=== PATIENT | female | born 1965 | race Caucasian/White ===

== ENCOUNTER → 2020-05-24 10:49 | Outpatient (BNVA) | payer OTHER, SELFPAY | PROVIDERS: PCP Hospitalist; Visit Provider Hospitalist | DX: J45.40 Moderate persistent asthma, uncomplicated (principal); J30.9 Allergic rhinitis, unspecified; K44.9 Diaphragmatic hernia without obstruction or gangrene | CPT/HCPCS: 90471; 90732; 99212 ==

== ENCOUNTER → 2020-11-22 09:07 | Outpatient (BNVA) | payer OTHER, SELFPAY | PROVIDERS: PCP Hospitalist; Visit Provider Hospitalist ==

== ENCOUNTER 2021-06-04 08:45 | Outpatient (REF) | payer OTHER, SELFPAY ==
--- NOTE | 2021-06-04 17:35 | PFT_ITS ---
INDICATION: Dyspnea. SPIROMETRY: FEV1 to FVC 78% with an FEV1 of 2.66 L, which is 97% predicted and FVC of 3.41 L, which is 96% predicted. No significant response to bronchodilators noted. Maximum voluntary ventilation 100% predicted. LUNG VOLUMES: Total lung capacity 102% predicted. DIFFUSION CAPACITY: DLCO 85% predicted. COMPARISONS: None. INTERPRETATION: No obstructive nor restrictive ventilatory defects identified. No significant response to bronchodilators noted. Normal lung volumes and normal diffusion capacity. Otherwise, pretty normal pulmonary function studies. Clinical correlation warranted. Aditya Key MD MR/MODL / [id number]
== END 2021-06-04 08:46 | disposition home or self-care (01) ==
LOC: HO.RESP 08:45
PROVIDERS: PCP Hospitalist; Visit Provider Hospitalist
DX: J45.40 Moderate persistent asthma, uncomplicated (principal)
CPT/HCPCS: 94060; 94727; 94729; 99212

== ENCOUNTER → 2021-08-27 11:01 | Outpatient (BNVA) | payer OTHER, SELFPAY | PROVIDERS: PCP Hospitalist; Visit Provider Hospitalist | DX: J45.41 Moderate persistent asthma with (acute) exacerbation (principal); J30.9 Allergic rhinitis, unspecified; J40 Bronchitis, not specified as acute or chronic; J01.90 Acute sinusitis, unspecified | CPT/HCPCS: 99212 ==

== ENCOUNTER → 2022-06-04 08:13 | Outpatient (BNVA) | payer OTHER, SELFPAY | PROVIDERS: PCP Hospitalist; Visit Provider Hospitalist | DX: J45.41 Moderate persistent asthma with (acute) exacerbation (principal); J30.9 Allergic rhinitis, unspecified; K44.9 Diaphragmatic hernia without obstruction or gangrene | CPT/HCPCS: 99212 ==

== ENCOUNTER 2023-09-29 08:14 | Outpatient (AMB) | payer OTHER, SELFPAY ==
--- NOTE | 2023-09-29 08:26 | MHC.OFFVIS ---
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 Overall she is doing well. Back in February so she did develop worsening respiratory symptoms and did have to go on a prednisone taper. She did not need antibiotics. She does have a nebulizer machine but has old medicine. She is wondering if that is able to be use. She still has a cough at times productive but overall better. Mild in severity. She continues use the Advair HFA. This works well for her. In the meantime she did get another GI doctor. She has a history hiatal hernia. We did do an x-ray that we reviewed back in July [address] [facility]. In a did demonstrate a moderate degree of hiatal hernia. Otherwise no other acute findings. 06/04/2022 the patient is here for a pulmonary follow-up visit. The patient overall is doing well. Back in March she did have a viral syndrome resulting significant asthma. She did require prednisone and also using her nebulizer. She thought she would have to get checked in the hospital but she subsequently improved after several weeks. She is back to her baseline. She is using her Advair as prescribed. The patient continues to lose weight with weight watchers. She continues on the singular. Otherwise patient is doing well. On examination she continues to have some degree of wheezing. She does not will get bothered by it. The patient feels comfortable with current respiratory regimen. We did talk about optimizing at therapy adding muscarinic antagonist in the near future if she gets worse. She can always call and I can send a prescription. Otherwise will follow-up in 1 years time. 09/29/2023 the patient is here visit very well. Back around March she did have an episode of asthma and bronchitis. She was placed on prednisone now on antibiotics. Typically has 1 episode a year. She has been very stable on the Advair. She has not been using her rescue inhaler. She responded very well to the singular. No recent imaging studies to review. The patient will continue with current respiratory regimen. We did review her vaccines. She is going to get her RSV vaccine in the fall. She is not due for her Prevnar 20 vaccine at this time. Otherwise patient is without any other complaints. 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 Chronic bronchitis Hiatal hernia Chronic allergic rhinitis Asthma Social History (Updated 06/04/21 @ 10:19 by BLAS Thompson) Patient Tobacco Use Status: Former Tobacco user Tobacco use type: Cigarette Years Smoked: 4 years Review of Systems Const Denies night sweats and Reports weight loss ENT Denies change in voice, Denies lip swelling, Denies mouth pain, Reports nasal congestion, Reports nasal discharge and Denies tongue swelling Card Denies chest pain Resp Denies change in phlegm color, Denies chest congestion, Reports cough and Reports wheezing GI Denies abdominal pain Musc Denies no additional complaints Skin/Breast Denies rash Neuro Denies Neuro-related abnormal movements Psych Denies no additional complaints Dmitriy/Lymph Denies easy bleeding and Denies lymphadenopathy Aller/Immun Denies lip swelling, Denies tongue swelling and Reports wheezing Physical Exam Vital Signs: Last Vital Signs Pulse 74 09/29/23 08:27 Pulse Ox 98 09/29/23 08:27 Oxygen Delivery Method Room Air 09/29/23 08:27 BMI result Body Mass Index 29.6 Const General: alert Neck Neck: Yes normal visual inspection, Yes full ROM and Yes no lymphadenopathy Chest Chest palpation & inspection: normal inspection of the chest Resp Auscultation: clear to auscultation bilaterally (coarse) and no wheezes Cardio Rate: regular rate Rhythm: regular rhythm Heart sounds: S1 normal heart sound present and S2 normal heart sound present GI Palpation (GI): Soft to palpation and nontender Auscultation: normal bowel sounds Assessment & Plan Assessment & Plan (1) Asthma: Code(s): J45.909 - Unspecified asthma, uncomplicated Category: Medical Qualifiers: Asthma complication type: with acute exacerbation Asthma persistence: persistent Asthma severity: moderate Qualified Code(s): J45.41 - Moderate persistent asthma with (acute) exacerbation (2) Chronic allergic rhinitis: Code(s): J30.9 - Allergic rhinitis, unspecified Category: Medical Plan continue Advair HFA OMERO as needed Nebsulizer as needed Acapella valve for CPT reflux diet Continue singulair CXR F/U 12 months Orders: Orders XR chest 2V Today J45.41 - Moderate persistent asthma with (acute) exacerbation Medications: New prednisone PO daily; Take 6 tabs daily x 3 days, then 5 tabs x 3 days, then 4 tabs x 3 days, then 3 tabs x 3 days, then 2 tabs daily x 3 days, then 1 tab x 3 days to complete. 63 tabs 0RF 18 days Changed From Advair HFA 115-21 mcg/actuation (fluticasone propion-salmeterol) 2 puffs inhalation BID 36 ea 3RF NS To Advair HFA 115-21 mcg/actuation (fluticasone propion-salmeterol) 2 puffs inhalation BID 3 ea 3RF 90 days NS Refilled montelukast 10 mg PO DAILY 90 tabs 3RF Coding Level of Care Code Est Pt Level 4 (41276) Diagnoses Moderate persistent asthma with acute exacerbation J45.41 Asthma complication type: with acute exacerbation Asthma persistence: persistent Asthma severity: moderate Chronic allergic rhinitis J30.9 Time Spent (min) 16
[2023-09-29 08:27] VITALS: PULSE 74; O2SAT 98; BMI 29.6
== END 2023-09-29 08:42 | disposition home or self-care (01) ==
PROVIDERS: PCP Hospitalist; Visit Provider Hospitalist
DX: J45.41 Moderate persistent asthma with (acute) exacerbation (principal); J30.9 Allergic rhinitis, unspecified
CPT/HCPCS: 99214

== ENCOUNTER → 2023-09-29 08:14 | Outpatient (BNVA) | payer OTHER, SELFPAY | PROVIDERS: PCP Hospitalist; Visit Provider Hospitalist | DX: J45.41 Moderate persistent asthma with (acute) exacerbation (principal); J30.9 Allergic rhinitis, unspecified; Z79.899 Other long term (current) drug therapy | CPT/HCPCS: 99212 ==

== ENCOUNTER 2024-09-09 10:01 | Outpatient (AMB) | payer OTHER, SELFPAY ==
--- NOTE | 2024-09-09 10:06 | MHC.OFFVIS ---
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 Overall she is doing well. Back in February so she did develop worsening respiratory symptoms and did have to go on a prednisone taper. She did not need antibiotics. She does have a nebulizer machine but has old medicine. She is wondering if that is able to be use. She still has a cough at times productive but overall better. Mild in severity. She continues use the Advair HFA. This works well for her. In the meantime she did get another GI doctor. She has a history hiatal hernia. We did do an x-ray that we reviewed back in July 2018 at [facility]. In a did demonstrate a moderate degree of hiatal hernia. Otherwise no other acute findings. 06/04/2022 the patient is here for a pulmonary follow-up visit. The patient overall is doing well. Back in March she did have a viral syndrome resulting significant asthma. She did require prednisone and also using her nebulizer. She thought she would have to get checked in the hospital but she subsequently improved after several weeks. She is back to her baseline. She is using her Advair as prescribed. The patient continues to lose weight with weight watchers. She continues on the singular. Otherwise patient is doing well. On examination she continues to have some degree of wheezing. She does not will get bothered by it. The patient feels comfortable with current respiratory regimen. We did talk about optimizing at therapy adding muscarinic antagonist in the near future if she gets worse. She can always call and I can send a prescription. Otherwise will follow-up in 1 years time. 09/29/2023 the patient is here visit very well. Back around March she did have an episode of asthma and bronchitis. She was placed on prednisone now on antibiotics. Typically has 1 episode a year. She has been very stable on the Advair. She has not been using her rescue inhaler. She responded very well to the singular. No recent imaging studies to review. The patient will continue with current respiratory regimen. We did review her vaccines. She is going to get her RSV vaccine in the fall. She is not due for her Prevnar 20 vaccine at this time. Otherwise patient is without any other complaints. 09/09/2024 the patient overall has been doing well. She continues use her respiratory therapy as prescribed. He has been about a year since I last saw her. She did much better denies any viral syndromes like she had prior which is of concern. She is now 59 years old so now she had a candidate for the RSV vaccine. I did encourage her to get a specially since she likely had RSV a couple years ago and had significant symptoms. The patient also should get her Tdap pertussis booster if his time for her to do that. No imaging studies to review. Will plan to get an x-ray next year. If she has any issues prior to next year's appointment she will call for an earlier assessment. [facility] Medical History (Updated 08/27/21 @ 20:25 by Aditya Key MD) [id number] syndrome Chronic bronchitis Hiatal hernia Chronic allergic rhinitis Asthma Social History Patient Tobacco Use Status: Former Tobacco user Tobacco use type: Cigarette Years Smoked: 4 years Review of Systems Const Denies night sweats and Reports weight loss ENT Denies change in voice, Denies lip swelling, Denies mouth pain, Reports nasal congestion, Reports nasal discharge and Denies tongue swelling Card Denies chest pain Resp Denies change in phlegm color, Denies chest congestion, Reports cough and Reports wheezing GI Denies abdominal pain Musc Denies no additional complaints Skin/Breast Denies rash Neuro Denies Neuro-related abnormal movements Psych Denies no additional complaints Dmitriy/Lymph Denies easy bleeding and Denies lymphadenopathy Aller/Immun Denies lip swelling, Denies tongue swelling and Reports wheezing Physical Exam Vital Signs: Last Vital Signs Pulse 79 09/09/24 10:07 BP 108/66 09/09/24 10:07 Pulse Ox 97 09/09/24 10:07 Oxygen Delivery Method Room Air 09/09/24 10:07 BMI result Body Mass Index 30.3 Const General: alert Neck Neck: Yes normal visual inspection, Yes full ROM and Yes no lymphadenopathy Chest Chest palpation & inspection: normal inspection of the chest Resp Auscultation: clear to auscultation bilaterally (coarse) and no wheezes Cardio Rate: regular rate Rhythm: regular rhythm Heart sounds: S1 normal heart sound present and S2 normal heart sound present GI Palpation (GI): Soft to palpation and nontender Auscultation: normal bowel sounds Assessment & Plan Assessment & Plan (1) Asthma: Code(s): J45.909 - Unspecified asthma, uncomplicated Category: Medical Qualifiers: Asthma complication type: with acute exacerbation Asthma persistence: persistent Asthma severity: moderate Qualified Code(s): J45.41 - Moderate persistent asthma with (acute) exacerbation (2) Chronic allergic rhinitis: Code(s): J30.9 - Allergic rhinitis, unspecified Category: Medical Plan continue Advair HFA OMERO as needed Nebsulizer as needed Acapella valve for CPT reflux diet Continue singulair CXR F/U 12 months Medications: New prednisone PO daily; Take 2 tabs daily x 5 days, then 1 tablet daily x 5 days 15 tabs 0RF 10 days Refilled Advair HFA 115-21 mcg/actuation (fluticasone propion-salmeterol) 2 puffs inhalation BID 3 ea 3RF 90 days NS montelukast 10 mg PO DAILY 90 tabs 3RF Ventolin HFA 90 mcg/actuation (albuterol sulfate) 2 puffs inhalation Q4H PRN 18 ea 11RF for wheezing NS albuterol sulfate 2.5 mg (3 mL) inhalation Q4H PRN 90 mL 11RF shortness of breath or wheezing 30 days Coding Level of Care Code Est Pt Level 4 (13646) Diagnoses Moderate persistent asthma with acute exacerbation J45.41 Asthma complication type: with acute exacerbation Asthma persistence: persistent Asthma severity: moderate Chronic allergic rhinitis J30.9 Time Spent (min) 16
[2024-09-09 10:07] VITALS: BP 108/66; PULSE 79; O2SAT 97; BMI 30.3
--- OUTSIDE RECORDS SUMMARY | 2024-09-09 10:35 | XMS_ITS | Patient Health Record ---
Author Organization [facility] Address [address] [place] [address] Care Team Providers Care Pump Erector Name Role Phone SASHA BUCHANAN Primary Care Provider Allergies Allergen (clinical drug ingredient) Drug/Non Drug Allergy documented on EMR Reaction Allergy Type Onset Date Status Pollen pollen (uncoded) Unknown Allergy Act harmony Results Component Value Reference Range Notes QuantiFERON-TB Gold Plus-[id number] Reviewed date:06/17/2024 07:48:26 AM Interpretation: Performing Lab:[facility] [place], [address], [place], Phone - [phone], Director - Nehemiah Notes/Report: QuantiFERON Incubation Incubation performed. QuantiFERON-TB Gold Plus Negative Negative No response to M tuberculosis antigens detected. Infection with M tuberculosis is unlikely, but high risk individuals should be considered for additional testing (ATS/IDSA/CDC Clinical Practice Guidelines, 2017). The reference range is an Antigen minus Nil result of <0.35 IU/mL. Chemiluminescence immunoassay methodology QuantiFERON Criteria QuantiFERON-TB Gold Plus is a qualitative indirect test for M tuberculosis infection (including disease) and is intended for use in conjunction with risk assessment, radiography, and other medical and diagnostic evaluations. The QuantiFERON-TB Gold Plus result is determined by subtracting the Nil value from either TB antigen (Ag) value. The Mitogen tube serves as a control for the test. QuantiFERON TB1 Ag Value 0.35 QuantiFERON TB2 Ag Value 0.30 QuantiFERON Nil Value 0.30 QuantiFERON Mitogen Value 7.92 Reason For Referral No Information Medications Medication SIG (Take, Route, Frequency, Duration) Notes Start Date End Date Status Singulair 10 MG 1 tablet Orally Once a day Active SEROquel 200 MG 1 tablet at bedtime Orally Once a day for 30 day(s) Active Advair HFA 115-21 MCG/ACT 2 puffs Inhalation Once a day Active Turmeric one daily Active Fish Oil one daily Active Albuterol Sulfate HFA 108 (90 Base) MCG/ACT 2 puffs as needed Inhalation every 6 hrs Active Shingrix 50 MCG/0.5ML as directed Intramuscular 1 for 365 days Not-Taking Flax Seeds - as directed Orally one pill daily Active Azithromycin 250 MG 2 tablet on the day, then 1 tablet daily for 4 days Orally Once a day for 5 day(s) 11/22/2020 Not-Taking Doxycycline Hyclate 100 MG 1 capsule Orally twice a day for 1 day 10/02/2020 Not-Taking Calcium one daily Active Vitamin D one daily Active Vitamin E one daily Active Vitamin B Complex - as directed Orally one daily Active Omeprazole 20 MG 1 capsule 30 minutes before morning meal Orally Once a day Active Cranberry one daily Active Levothyroxine Sodium 150 MCG 1 tablet in the morning on an empty stomach Orally Once a day Active Magnesium one daily Active Immunizations Vaccine Route Administration Date Status Comme nts COVID Unknown 12/14/2020 Administered Pfizer Influenza, high dose seasonal Unknown 03/02/2019 Admini stered Social History Tobacco Use: Social History Observation Description Date Details (start date - stop date) Never Smoker NA - NA Tobacco Use/Smoking Question Answer Notes Are you a nonsmoker Alcohol Screen (Audit-C) Question Answer Notes Did you have a drink contain ing alcohol in the past year? Yes How often did you have a dri nk containing alcohol in the past year? Monthly or less (1 point) How many drinks did you have on a typical day when you were drinking in the past year? 1 or 2 drinks (0 point) Points 1 Interpretation Negative Problems Problem Type SNOMED Code ICD Code Onset Dates Problem Status W/U Status Risk Notes Problem Hypothyroidism (13373453) Hypothyroidism, unspecified (E03.9) Active confirmed Problem Obesity due to excess calories (224931812) Other obesity due to excess calories (E66.09) Active confirmed Problem Insomnia (524156015) Insomnia, unspecified (G47.00) Active confirmed Problem Uncomplicated moderate persistent asthma (580156389) Moderate persistent asthma, uncomplicated (J45.40) Active confirmed Problem Gastro-esophageal reflux disease without esophagitis (123189362) Gastro-esophagea l reflux disease without esophagitis (K21.9) Active confirmed Problem History of disease caused by Severe acute respiratory syndrome coronavirus 2 (situation) (14045989311936686 5) Personal history of COVID-19 (Z86.16) Active confirmed Vital Signs Heart Rate 62 /min 02/15/2024 Temperature 97 degrees Fahrenheit 02/15/2024 Oximetry 97 % 02/15/2024 Blood pressure diastolic 70 mm Hg 02/15/2024 Height 5'5'' in 02/15/2024 Blood pressure systolic 110 mm Hg 02/15/2024 Weight 185.1 lbs 02/15/2024 BMI 30.8 kg/m2 02/15/2024 Encounters Encounter Location Date Provider Diagnosis [address] [place] [address] 02/15/2024 SASHA BUCHANAN Hypothyroidism, unspecified E03.9 ; Annual physical exam Z00.00 ; Gastro-esophageal reflux disease without esophagitis K21.9 ; Moderate persistent asthma, uncomplicated J45.40 and Insomnia, unspecified G47.[address] [place] [address] 06/09/2024 SASHA BUCHANAN Encounter for screen ing for respiratory tuberculosis Z11.[address] [address] 07/28/2024 SASHA BUCHANAN Assessments Encounter Date Diagnosis (ICD Code) Assessment Notes Treatment Notes Treatment Clinical Notes Section Notes 02/15/2024 Hypothyroidism, unspecified (ICD-10 - E03.9) Ms. Gilbert is a 59 year old lady with hypothyroidism s/p thyroidectomy for thyroid cancer, asthma and insomnia here for annual physical. Plan is as follows: Hypothyroidism. status post thyroidectomy. she sees Dr. Manjarrez. Continue Levothyroxine 150 MCG and advised to take it first thing in the morning on an empty stomach. GERD. she sees Dr. Deluca. Continue Omeprazole 20 MG 30 minutes before morning meal once a day Asthma. she sees Dr. Key. She uses Advair and Albuterol inhalers as needed. Continue Singulair 10 MG once a day Insomnia. She follows up with Dr. Troncoso. She sleeps reasonably well on Seroquel 200 MG once daily. Hyperlipidemia. Total cholesterol 215. LDL 125. Non HDL 139. which were high. Suggested dietary modifications. EKG is NSR at [address] and T wave changes and no BBB and normal intervals Class 1 Obesity. Advised dietary restrictions and regimental exercise. Goal is to lose 5-6 lbs a month. Goal weight 158 lbs Eye screening. She sees her web communications specialist regularly. Dental screening. She sees dentist regularly. Skin screening. She sees her infantry assaultman regularly. Colon cancer screening. She had her colonoscopy in 2023 at [place] and she is on [id number]. Breast cancer screening. She had her mammogram in June. She sees her customer experience strategist regularly. Immunizations. She needs to update his COVID-19, shingles and pneumonia vaccines. Advance directive. She is on full code and her HCP is her son Clement iGlbert [phone] Blood work reviewed with patient and questions answered. Screening blood work before next appointment. General health concerns discussed with patient. Scribe services used to formulate this note under HIPAA compliance and under [place] law mandated for scribe services. Patient aware of service. Verbal consent and written consent taken from the patient. Patient understands and verbalizes understanding of the scribes services and all questions answered regarding scribes services. Patient agrees to use of scribes services. 02/15/2024 Annual physical exam (ICD-10 - Z00.00) Ms. Gilbert is a 59 year old lady with hypothyroidism s/p thyroidectomy for thyroid cancer, asthma and insomnia here for annual physical. Plan is as follows: Hypothyroidism. status post thyroidectomy. she sees Dr. Manjarrez. Continue Levothyroxine 150 MCG and advised to take it first thing in the morning on an empty stomach. GERD. she sees Dr. Deluca. Continue Omeprazole 20 MG 30 minutes before morning meal once a day Asthma. she sees Dr. Key. She uses Advair and Albuterol inhalers as needed. Continue Singulair 10 MG once a day Insomnia. She follows up with Dr. Troncoso. She sleeps reasonably well on Seroquel 200 MG once daily. Hyperlipidemia. Total cholesterol 215. LDL 125. Non HDL 139. which were high. Suggested dietary modifications. EKG is NSR at [address] and T wave changes and no BBB and normal intervals Class 1 Obesity. Advised dietary restrictions and regimental exercise. Goal is to lose 5-6 lbs a month. Goal weight 158 lbs Eye screening. She sees her web communications specialist regularly. Dental screening. She sees dentist regularly. Skin screening. She sees her infantry assaultman regularly. Colon cancer screening. She had her colonoscopy in 2023 at [place] and she is on [id number]. Breast cancer screening. She had her mammogram in June. She sees her customer experience strategist regularly. Immunizations. She needs to update his COVID-19, shingles and pneumonia vaccines. Advance directive. She is on full code and her HCP is her son Clement Gilbert [phone] Blood work reviewed with patient and questions answered. Screening blood work before next appointment. General health concerns discussed with patient. Scribe services used to formulate this note under HIPAA compliance and under [place] law mandated for scribe services. Patient aware of service. Verbal consent and written consent taken from the patient. Patient understands and verbalizes understanding of the scribes services and all questions answered regarding scribes services. Patient agrees to use of scribes services. 06/09/2024 Encounter for screening for respiratory tuberculosis (ICD-10 - Z11.1) 02/15/2024 Gastro-esophageal reflux disease without esophagitis (ICD-10 - K21.9) Ms. Gilbert is a 59 year old lady with hypothyroidism s/p thyroidectomy for thyroid cancer, asthma and insomnia here for annual physical. Plan is as follows: Hypothyroidism. status post thyroidectomy. she sees Dr. Manjarrez. Continue Levothyroxine 150 MCG and advised to take it first thing in the morning on an empty stomach. GERD. she sees Dr. Deluca. Continue Omeprazole 20 MG 30 minutes before morning meal once a day Asthma. she sees Dr. Key. She uses Advair and Albuterol inhalers as needed. Continue Singulair 10 MG once a day Insomnia. She follows up with Dr. Troncoso. She sleeps reasonably well on Seroquel 200 MG once daily. Hyperlipidemia. Total cholesterol 215. LDL 125. Non HDL 139. which were high. Suggested dietary modifications. EKG is NSR at [address] and T wave changes and no BBB and normal intervals Class 1 Obesity. Advised dietary restrictions and regimental exercise. Goal is to lose 5-6 lbs a month. Goal weight 158 lbs Eye screening. She sees her web communications specialist regularly. Dental screening. She sees dentist regularly. Skin screening. She sees her infantry assaultman regularly. Colon cancer screening. She had her colonoscopy in 2023 at [place] and she is on [id number]. Breast cancer screening. She had her mammogram in June. She sees her customer experience strategist regularly. Immunizations. She needs to update his COVID-19, shingles and pneumonia vaccines. Advance directive. She is on full code and her HCP is her son Clement Gilbert [phone] Blood work reviewed with patient and questions answered. Screening blood work before next appointment. General health concerns discussed with patient. Scribe services used to formulate this note under HIPAA compliance and under [place] law mandated for scribe services. Patient aware of service. Verbal consent and written consent taken from the patient. Patient understands and verbalizes understanding of the scribes services and all questions answered regarding scribes services. Patient agrees to use of scribes services. 02/15/2024 Moderate persistent asthma, uncomplicated (ICD-10 - J45.40) Ms. Gilbert is a 59 year old lady with hypothyroidism s/p thyroidectomy for thyroid cancer, asthma and insomnia here for annual physical. Plan is as follows: Hypothyroidism. status post thyroidectomy. she sees Dr. Manjarrez. Continue Levothyroxine 150 MCG and advised to take it first thing in the morning on an empty stomach. GERD. she sees Dr. Deluca. Continue Omeprazole 20 MG 30 minutes before morning meal once a day Asthma. she sees Dr. Key. She uses Advair and Albuterol inhalers as needed. Continue Singulair 10 MG once a day Insomnia. She follows up with Dr. Troncoso. She sleeps reasonably well on Seroquel 200 MG once daily. Hyperlipidemia. Total cholesterol 215. LDL 125. Non HDL 139. which were high. Suggested dietary modifications. EKG is NSR at [address] and T wave changes and no BBB and normal intervals Class 1 Obesity. Advised dietary restrictions and regimental exercise. Goal is to lose 5-6 lbs a month. Goal weight 158 lbs Eye screening. She sees her web communications specialist regularly. Dental screening. She sees dentist regularly. Skin screening. She sees her infantry assaultman regularly. Colon cancer screening. She had her colonoscopy in 2023 at [place] and she is on [id number]. Breast cancer screening. She had her mammogram in June. She sees her customer experience strategist regularly. Immunizations. She needs to update his COVID-19, shingles and pneumonia vaccines. Advance directive. She is on full code and her HCP is her son Clement Gilbert [phone] Blood work reviewed with patient and questions answered. Screening blood work before next appointment. General health concerns discussed with patient. Scribe services used to formulate this note under HIPAA compliance and under [place] law mandated for scribe services. Patient aware of service. Verbal consent and written consent taken from the patient. Patient understands and verbalizes understanding of the scribes services and all questions answered regarding scribes services. Patient agrees to use of scribes services. 02/15/2024 Insomnia, unspecified (ICD-10 - G47.00) Ms. Gilbert is a 59 year old lady with hypothyroidism s/p thyroidectomy for thyroid cancer, asthma and insomnia here for annual physical. Plan is as follows: Hypothyroidism. status post thyroidectomy. she sees Dr. Manjarrez. Continue Levothyroxine 150 MCG and advised to take it first thing in the morning on an empty stomach. GERD. she sees Dr. Deluca. Continue Omeprazole 20 MG 30 minutes before morning meal once a day Asthma. she sees Dr. Key. She uses Advair and Albuterol inhalers as needed. Continue Singulair 10 MG once a day Insomnia. She follows up with Dr. Troncoso. She sleeps reasonably well on Seroquel 200 MG once daily. Hyperlipidemia. Total cholesterol 215. LDL 125. Non HDL 139. which were high. Suggested dietary modifications. EKG is NSR at [address] and T wave changes and no BBB and normal intervals Class 1 Obesity. Advised dietary restrictions and regimental exercise. Goal is to lose 5-6 lbs a month. Goal weight 158 lbs Eye screening. She sees her web communications specialist regularly. Dental screening. She sees dentist regularly. Skin screening. She sees her infantry assaultman regularly. Colon cancer screening. She had her colonoscopy in 2023 at [place] and she is on [id number]. Breast cancer screening. She had her mammogram in June. She sees her customer experience strategist regularly. Immunizations. She needs to update his COVID-19, shingles and pneumonia vaccines. Advance directive. She is on full code and her HCP is her son Clementbeverly Gilbert [phone] Blood work reviewed with patient and questions answered. Screening blood work before next appointment. General health concerns discussed with patient. Scribe services used to formulate this note under HIPAA compliance and under [place] law mandated for scribe services. Patient aware of service. Verbal consent and written consent taken from the patient. Patient understands and verbalizes understanding of the scribes services and all questions answered regarding scribes services. Patient agrees to use of scribes services. Plan Of Treatment Pending Test Test Name Order Date COMPREHENSIVE METABOLIC PANEL 12/26/2021 LIPID PANEL 12/26/2021 MICROALBUMIN, URINE 12/26/2021 QUANTIFERON TB GOLD PLUS 12/26/2021 Future Test Test Name Order Date TSH+Free [id number] 02/15/2024 Lipid Panel-[id number] 02/15/2024 Comp. Metabolic Panel [id number] 2023 Insurance Providers Payer Name Payer Address Payer Phone Subscriber Number Group Number Insured Name Patient Relationship to Insured Coverage Start Date Coverage End Date [facility] [address] [address] [place] [address] [id number] Cindy Gilbert Self - patient is the insured Medical (General) History Medical History History ICD Code Hypothyroidism And status po st thyroidectomy for thyroid cancer and she sees Dr. Manjarrez Hiatal Hernia and GERD And she see Dr. Rachelle more asthma - moderate persistent And she see s Dr. Key insomnia Surgical History Surgery Date(Month/Year) thyroidectomy secondery cancer at [facility] 30 11 hysterectomy, total with abhinav ateral salpingo-oophorectomy (BSO) AT [facility] 2009 tonsillectomy Hospitalization History Reason Date(Month/Year) surgeries
== END 2024-09-09 10:23 | disposition home or self-care (01) ==
LOC: HO.HPS 10:02
PROVIDERS: PCP Hospitalist; Visit Provider Hospitalist
DX: J45.41 Moderate persistent asthma with (acute) exacerbation (principal); J30.9 Allergic rhinitis, unspecified
CPT/HCPCS: 99214

== ENCOUNTER → 2024-09-09 10:01 | Outpatient (BNVA) | payer OTHER, SELFPAY | PROVIDERS: PCP Hospitalist; Visit Provider Hospitalist | DX: J45.41 Moderate persistent asthma with (acute) exacerbation (principal); J30.9 Allergic rhinitis, unspecified; Z87.891 Personal history of nicotine dependence | CPT/HCPCS: 99212 ==